=== PATIENT | male | born 1970 | race Caucasian/White ===

== ENCOUNTER 2019-01-06 19:39 | Emergency (ER) | payer OTHER ==
[~2019-01-06] VITALS: Ht 182.9 cm; Wt 99.8 kg
[~2019-01-06 19:39] MED LIST: ATI.5 PO; METO25TA14 PO; PAX20 PO
[2019-01-06 19:50] VITALS: BP 159/100
--- NOTE | 2019-01-06 19:52 | NUR ---
TO LOBBY A/W BED AMBULATORY
--- NOTE | 2019-01-06 20:18 | NUR ---
48 Y/O MALE C/O OF RT FLANK PAIN, RADIATING TO HIS BACK 2 HOURS AGO. PAIN IS A 6/10 DULL PAIN STARTING IN THE LEFT LOWER ABDOMEN TO LEFT FLANK TO THE LOWER BACK/TOWARDS SPINE. +NAUSEA/VOMITING; DENIES DIARRHEA. DENIES DYSURIA. ABDOMEN SOFT AND ROUND. BOWEL SOUNDS HEARD ON ALL FOUR QUADRANTS. NO PAIN UPON PALPATION. PAIN NOTED WHEN PALPATING LOWER BACK. PT. STATES, "I THINK I MIGHT BE PASSING A KIDNEY STONE; I PASSED ONE IN 2016". ERMD MADE AWARE OF STATUS. SIDE RAILSX1. AT BEDSIDE. WILL CONTINUE TO MONITOR. PMH: HTN RX:LOSARTAN POTASSIUM NKDA
--- NOTE | 2019-01-06 20:19 | NUR ---
PT TAKEN TO BED 3
--- NOTE | 2019-01-06 21:05 | NUR ---
PT RETURNED BACK FROM CT VIA WHEELCHAIR.
[2019-01-06 21:11] LABS: APPEARANCE,URINE SL CLOUDY (CLEAR); BILIRUBIN,URINE 1+ (NEGATIVE); BLOOD, URINE NEGATIVE (NEGATIVE); COLOR,URINE YELLOW (YELLOW); LEUKOCYTE ESTERASE ,URINE NEGATIVE (NEGATIVE); NITRITE, URINE NEGATIVE (NEGATIVE); PH,URINE 6.5 (5.0-9.0); UGLUCOSE NEGATIVE (NEGATIVE)
[2019-01-06] MEDS ORDERED: KETOROLAC 30 MG/ML VIAL ONE (21:13)
[2019-01-06] MEDS ORDERED: ONDANSETRON 4 MG ODT ONE (21:14)
== END 2019-01-06 22:00 | disposition home or self-care (01) ==
LOC: MED 19:39
DX: N20.0 Calculus of kidney (principal); I10 Essential (primary) hypertension; Z79.899 Other long term (current) drug therapy
CPT/HCPCS: 74176; 81003; 99284; J1885; Q0162